=== PATIENT | female | born 1950 | race Caucasian/White ===

== ENCOUNTER 2018-03-17 05:35 | Day surgery (SDC) | payer OTHER ==
[~2018-03-17 05:35] MED LIST: CYMBALTA30 MG PO; GABAPENTIN400 MG PO; HYDROCHLOROTH12.5 M1 PO; LOSARTAN POTASS25 MG PO; METFORMIN HCL500 MG PO; VOLTAREN100 GM
== END 2018-03-17 12:50 | disposition home or self-care (01) ==
LOC: CIR.AMB 05:35
DX: N95.2 Postmenopausal atrophic vaginitis (principal); N90.4 Leukoplakia of vulva; L83 Acanthosis nigricans

== ENCOUNTER 2022-12-17 11:19 | Day surgery (SDC) | payer OTHER ==
[~2022-12-17] VITALS: Ht 157.5 cm; Wt 58.1 kg
[~2022-12-17 11:19] MED LIST changes: +NORVASC2.5 M1 PO
[2022-12-17] MEDS ORDERED: PERCOCET 5-3251 EACH PO (15:34)
[2022-12-17] MEDS ORDERED: RECTICARE30 GM TOP (15:35)
[2022-12-17] MEDS ORDERED: DERMOPLAST PAIN78 GM TOP (15:35)
== END 2022-12-17 19:20 | disposition home or self-care (01) ==
LOC: CIR.AMB 11:19
PROVIDERS: ATTEND Surgery
DX: K62.0 Anal polyp (principal); L29.0 Pruritus ani; A63.0 Anogenital (venereal) warts; K64.4 Residual hemorrhoidal skin tags; K66.0 Peritoneal adhesions (postprocedural) (postinfection)